=== PATIENT | female | born 1965 | race Caucasian/White ===

== ENCOUNTER → 2023-02-04 12:04 | Outpatient (CLI) | payer BC, OTHER, SELFPAY ==
--- NOTE | 2023-02-04 | DI.RAD.S_ITS ---
P MRI ROCEDURE: XR LUMBAR SPINE 2-3V INDICATIONS: low back pain TECHNIQUE: 3 views of the lumbar spine were acquired. COMPARISON: None. FINDINGS: Bones: 5 [id number] vertebrae are present. Bilateral L5 pars defects. Grade 1 anterolisthesis of L5 on S1 measuring 8 mm. Lower lumbar facet arthropathy. No vertebral body compression fractures. No suspicious bony lesions. Soft tissues: Overlying bowel gas pattern is normal. No suspicious soft tissue calcifications. IMPRESSION: 1. Bilateral L5 pars defects with grade 1 anterolisthesis of L5 on S1. Comment: Lumbar spine MRI be helpful. Dictated by: Yan Lal M.D. on 02/04/2023 at 14:00 Approved by: Yan Lal M.D. on 02/04/2023 at 14:01
== END ==
PROVIDERS: Family Provider Family Medicine; PCP Naturopath; Referring Provider Naturopath; Visit Provider Naturopath
DX: M43.17 Spondylolisthesis, lumbosacral region (principal); M54.50 Low back pain, unspecified
CPT/HCPCS: 72100

== ENCOUNTER → 2023-03-04 17:07 | Outpatient (CLI) | payer BC, OTHER, SELFPAY ==
--- NOTE | 2023-03-04 17:09 | DI.MRI.S_ITS ---
PROCEDURE: MR LUMBAR SPINE WO CON INDICATIONS: Spondylolisthesis, site unspecified TECHNIQUE: Noncontrast sagittal T1 spin echo and T2 fast echo, sagittal STIR, and T2 fast spin echo through the lumbar spine. In cases with scoliosis, additional coronal T2 fast spin echo may be performed. COMPARISON: [facility], CR, XR LUMBAR SPINE 2-3V, 02/04/2023, 12:14. FINDINGS: Image quality: Excellent. Alignment and Curvature: Grade 1 L5-S1 anterolisthesis is seen, with associated pars defects. Bone Marrow: Marrow is of normal overall signal. No acute vertebral body compression fractures. Spinal Cord: Conus medullaris terminates at the L1 level. Visualized cord demonstrates normal signal and size. Paraspinous Soft Tissues: No paravertebral masses. T12-L1: Normal appearance. L1-L2: Normal appearance. L2-L3: No significant abnormality is seen. L3-L4: The disc height and disk signal are relatively well-preserved. Minimal disc bulge is seen. Mild to moderate facet hypertrophy is seen. No significant neural foraminal or central canal narrowing can be seen. L4-L5: The disc height and disk signal are relatively well-preserved. Moderate facet joint hypertrophy is seen. No significant neural foraminal narrowing or central canal narrowing can be seen. L5-S1: Moderate loss of disc height and disc signal can be seen posteriorly. Mild to moderate disc bulge is seen. Mild to moderate facet hypertrophy can be seen. There is moderate to severe bilateral neural foraminal narrowing seen (left worse than right), with an associated a degree of compression seen upon the exiting nerve roots. No significant central canal narrowing is seen. IMPRESSION: Focal L5-S1 degenerative change is seen, with bilateral pars defects and grade 1 L5-S1 anterolisthesis. Moderate to severe bilateral neural foraminal narrowing can be seen, with associated compression upon the exiting bilateral L5 nerve roots. Dictated by: Elliott Boudreaux M.D. on 03/04/2023 at 17:45 Approved by: Elliott Boudreaux M.D. on 03/04/2023 at 17:48
== END ==
PROVIDERS: Family Provider Family Medicine; PCP Naturopath; Referring Provider Orthopaedic Surgery Orthopaedic Surgery of the Spine; Visit Provider Orthopaedic Surgery Orthopaedic Surgery of the Spine
DX: M47.817 Spondylosis without myelopathy or radiculopathy, lumbosacral region; M43.17 Spondylolisthesis, lumbosacral region; M48.07 Spinal stenosis, lumbosacral region
CPT/HCPCS: 72148

== ENCOUNTER → 2023-04-25 10:23 | Outpatient (CLI) | payer BC, OTHER, SELFPAY | PROVIDERS: Family Provider Family Medicine; PCP Naturopath; Referring Provider Orthopaedic Surgery Orthopaedic Surgery of the Spine; Visit Provider Orthopaedic Surgery Orthopaedic Surgery of the Spine | DX: Z01.818 Encounter for other preprocedural examination (principal) | CPT/HCPCS: 93005 ==

== ENCOUNTER 2023-05-01 10:23 | Observation (INO) | payer BC, OTHER, SELFPAY ==
[2023-04-30 07:43] VITALS: BMI 26.3
[2023-05-01] VITALS (16 sets, daily range): BP systolic 110–133; BP diastolic 51–77; PULSE 67–108; RESP 10–18; TEMP 36.1–36.4; O2SAT 97–100; BMI 26.3
--- NOTE | 2023-05-01 | DI.RAD.S_ITS ---
PROCEDURE: XR LUMBAR SPINE 2-3V INDICATIONS: TLIF L5-S1 TECHNIQUE: 3 views of the lumbar spine were acquired. COMPARISON: [facility], CR, XR LUMBAR SPINE 2-3V, 02/04/2023, 12:14. FINDINGS: Fluoroscopic guidance utilized for and L5-S1 posterior and interbody surgical fusion. No hardware complication. IMPRESSION: Fluoroscopic guidance. Dictated by: Tod Shoemaker M.D. on 05/01/2023 at 15:50 Approved by: Tod Shoemaker M.D. on 05/01/2023 at 15:51
[2023-05-01] MEDS: LACTATED RINGERS 1,000 ML 100 ML IV (11:07)
--- NOTE | 2023-05-01 11:45 | PM.PREOP ---
Pre-operative Note COVID-19 Criteria for continued procedure: Expected advancement of disease process, Possibility delay results in more complex future surgery or treatment, Increased loss of function, Continuing or worsening of significant or severe pain, Deterioration of the patient's condition or overall health and Delay expected to result in less-positive ultimate med/surg outcome Interval Note History & Physical reviewed/Exam performed by Physician: Yes Changes to H&P: No
[2023-05-01] MEDS: CEFAZOLIN 2 GM/100 ML PREMIX 100 ML IV ×2 (12:35→20:22)
--- NOTE | 2023-05-01 13:05 | SUR.OPER ---
Prone on spine table, head in foam head support, padded chest and pelvic supports, gel pad at knees, lower legs supported by pillows; nipples, genitalia and toes free of pressure, arms secured on foam padded arm boards at <90 degrees abduction. Tape over blanket at thigh secured to table.
[2023-05-01] MEDS: BUPIVACAINE 0.25% (PF) 60 ML, EPINEPHrine 0.15 MG INJ (13:12)
[2023-05-01] MEDS: BUPIVACAINE LIPOSOME 266 MG/20 ML VIAL INJ (13:12)
--- NOTE | 2023-05-01 14:57 | P.OP_ITS ---
Operative Date/Time/Diagnoses Date of procedure: 05/01/23 Time of procedure: 12:00 Pre-op diagnosis: 1. L5-S1 spondylolisthesis 2. L5-S1 spinal stenosis with radiculopathy Post-op diagnosis: same Procedure & Clinicians Procedure: 1. L5-S1 Postero-lateral and posterior interbody fusion 2. L5-S1 interbody cage placement. 3. L5-S1 decompressive laminectomy with bilateral facetecomies 4. L5-S1 Posterior non-segmental instrumentation 5. [place] of bone marrow from iliac crest 6. Utilization of microsurgical technique and operating microscope Same procedure as scheduled: Yes Indications: Patient has been having chronic back pain and worsening lumbar radiculopathy. Patient failed multiple conservative management with worsening pain weakness and numbness in her lower extremity. Patient has been having difficulty performing activity of daily living. After discussing risks benefits of treatment options, patient elected proceed with surgery. Surgeon: Alexus Borja Liquid Sugar Fortifier: Edilma Case Click Yes if Unassisted: No Anesthesia Type: General Operative Notes Closure Type: primary Specimen(s): none sent Prosthetic devices, grafts, tissues, transplants, or devices: Globus revolve screws, Rise cage Estimated Blood Loss (mL): 100 Blood products transfused: none Procedure in detail: Patient was seen in the preoperative area. Risks and benefits of the surgery was discussed with the patient. Informed consent was obtained from the patient and placed in the chart. Surgical site was marked. Patient was taken to the operative room. General anesthesia was administered. Prophylactic antibiotic was given to the patient less than 30 min before the incision was made. Patient was placed into a prone position on the Kirby table. Patient's back was then prepped and draped in the sterile fashion. Time-out was performed at this time. Using AP and lateral C-arm imaging the interval between L5-S1 was identified and marked on patient's back. A 2 inch incision 2 in from midline was made on the left side first. The fascia was incised in line with skin incision. Globus MARS retractors was placed inside the incision and docked onto the L5 lamina. Using microsurgical technique and operating microscope, a L5 laminectomy and L5-S1 facetectomy was performed using a Kerrison rongeur. The laminectomy and facetectomy was performed in order to decompress patient's cauda equina as well as the nerve roots exiting at the L5-S1 level. Patient was found have severe lateral recess and neural foramen stenosis which was fully decompressed after the laminectomy facetectomy. More than 75% of the facets were removed during the process of decompression rendering L5-S1 level grossly unstable and required a fusion procedure at the same time. The disc space at L5-S1 was identified. And a total diskectomy was performed at L5-S1 level. The endplates were decorticated using a rasp and shaver. The total diskectomy and decortication was performed at L5-S1 level in order to to accomplish a L5-S1 fusion. The local bone from the laminectomy and facetectomy was saved for local bone grafting. After the total diskectomy and decortication was completed, Trifecta bone graft material was combined with local bone that was harvested earlier. At this time, a separate skin is incision was made over the iliac crest. A Jamshidi needle was inserted into the iliac crest through a separate skin incision. 5 cc of bone marrow aspiration was obtained through the separate skin incision using a Jamshidi needle from the iliac crest. The bone marrow aspiration was combined with local bone and the Trifecta bone grafting material. The bone grafting material was placed into the L5-S1 interbody space along with a expandable cage. The cage was expanded to its maximum height using the torque limiting screwdriver. At this time a mirror image incision was made on the right side. The fascia was incised in line with the skin incision. Globus MARS retractor was inserted and docked onto the L5-S1 posterolateral gutter. Using the power drill, posterior- lateral decortication was performed at L5-S1 level until bleeding cortical bone was identified. The remaining bone grafting material was placed into the L5-S1 posterior lateral gutter he order to accomplish posterolateral fusion at the L5- S1 level. Using the double C-arm technique, pedicle screws were placed into the L5-S1 pedicles bilaterally. This was done by placing the Jamshidi needle into the pedicles, then placing the guidewires over the Jamshidi needle, and finally placing the cannulated screws over the guidewires bilaterally. After the pedicle screws were placed, 2 titanium rods was locked into the heads of the pedicle screws using locking caps and torque limiting screwdriver. After all the hardware was placed, and confirmed with AP and lateral C-arm imaging, the wound was then irrigated with sterile normal saline and packed with Ray-Tamara gauze for 3 min to accomplish hemostasis. After the gauze was removed the deep fascia was closed with #1 Vicryl suture. The subcutaneous layer was closed with 2-0 Vicryl. The skin was closed with skin cristy. Patient tolerated the procedure well. There were no complications. The Operation could not have been safely performed without compromising the technical result or length of the procedure, without the assistance of a skilled assistant finance director. The assistant finance director was medically necessary for proper positioning, retraction and manipulation of instruments, proper exposure, surgical preparation, and manipulation of tissue. Complications: none Post-operative Condition: stable Disposition: PACU Plan for aftercare: Admit to inpatient hospital
[2023-05-01] MEDS: OXYCODONE IR 5 MG TABLET PO (15:36)
[2023-05-01] MEDS: ACETAMINOPHEN 325 MG TABLET 650 MG PO (17:14)
[2023-05-01] MEDS: OXYCODONE IR 10 MG TABLET PO ×3 (17:15→21:07)
[2023-05-01] MEDS: hydrOXYzine pamoate 25 MG CAPSULE PO (18:09)
[2023-05-01] MEDS: HYDROMORPHONE 0.5 MG INJ IV ×2 (18:58→21:57)
[2023-05-01] MEDS: SENNOSIDES 8.6 MG TABLET 17.2 MG PO (20:21)
[2023-05-01] MEDS: DOCUSATE 100 MG CAPSULE PO (20:21)
[2023-05-02] VITALS (8 sets, daily range): BP systolic 96–115; BP diastolic 55–75; PULSE 67–86; RESP 10–19; TEMP 36.4–36.8; O2SAT 98–100
[2023-05-02] MEDS: OXYCODONE IR 10 MG TABLET PO ×4 (00:14→12:56)
[2023-05-02] MEDS: CEFAZOLIN 2 GM/100 ML PREMIX 100 ML IV (03:47)
[2023-05-02] MEDS: ONDANSETRON 4 MG/2 ML INJ IV ×2 (04:31→11:17)
[2023-05-02] MEDS: LEVOTHYROXINE 88 MCG 88 EACH PO (06:02)
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
[2023-05-02] MEDS: ACETAMINOPHEN 325 MG TABLET 650 MG PO ×3 (07:36→21:15)
[2023-05-02] MEDS: LIOTHYRONINE 5 MCG TABLET PO (08:10)
[2023-05-02] MEDS: hydrOXYzine pamoate 25 MG CAPSULE PO ×2 (08:10→15:48)
[2023-05-02] MEDS: DOCUSATE 100 MG CAPSULE PO ×2 (08:11→21:16)
--- NOTE | 2023-05-02 10:30 | CM.DANOTE ---
Initial DCP Assessment Note Pt is a 57 yo female, resident of [place], now POD#[address] surgery [address] Borja PCP: Nury Babcock [facility], pt discussed in multidisciplinary rounds this morning. Therapy is pending. Patient has been complaining of poor pain management this morning Met w/patient to introduce role. Patient explains she is indp and works at [employer] and planned to have her help her through the weekend and then her 86 yo mother will be here from [place] to assist. Patient's mom is active and indp and will be able to assist patient throughout her recovery No barriers identified at this time to patient's safe discharge home w/family to assist, awaiting input from therapy eval; close outpatient f/u recommended upon discharge. SEAN Moncada Discharge Planning/Care Management CM Discharge Assessment Start: 05/02/23 10:26 Freq: Status: Active Protocol: Document 05/02/23 10:26 JENNIFER (Rec: 05/02/23 10:27 JENNIFER [id number]) Discharge Planning Assessment Assigned Lawyer SEAN Dorsey DPOA/Assigned Designee Name Audi Ly, spouse Contact Information [phone] Advance Directives? No Advance Directives on File No History Provided By Patient,Medical Record Prior Living Arrangements House Household Members spouse Type of transporation used prior to Drives own vehicle admit Independent with ADL's Yes Is patient alert and oriented? Yes Barriers to Discharge No Comment Anticipate home w/spouse upon discharge Discharge Plan Home Transportation Arrangement Family Referrals Initiated None needed
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
--- NOTE | 2023-05-02 16:07 | PT-IP ANOTE ---
Attempted to see pt at 14:00, pts BP 77/37 sitting in chair and 84/39 fully reclined. Pt queasy and lightheaded. Will hold PT until pt appropriate, RN aware and giving pt more fluids.
[2023-05-02] MEDS: OXYCODONE IR 5 MG TABLET PO ×2 (17:59→21:16)
[2023-05-02] MEDS: LACTATED RINGERS 1,000 ML 100 ML IV (18:45)
[2023-05-02] MEDS: SENNOSIDES 8.6 MG TABLET 17.2 MG PO (21:16)
[2023-05-03 00:33] VITALS: BP 94/51; PULSE 77; RESP 18; TEMP 36.7; O2SAT 96
[2023-05-03] MEDS: OXYCODONE IR 5 MG TABLET PO ×3 (03:56→10:27)
[2023-05-03 04:01] VITALS: BP 103/59; PULSE 74; RESP 18; TEMP 36.3; O2SAT 99
[2023-05-03] MEDS: LACTATED RINGERS 1,000 ML 100 ML IV (04:49)
[2023-05-03] MEDS: LEVOTHYROXINE 88 MCG 88 EACH PO (06:07)
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
[2023-05-03] MEDS: polyethylene glycoL 3350 17 GM POWD.PACK PO (07:43)
[2023-05-03] MEDS: LIOTHYRONINE 5 MCG TABLET PO (07:43)
[2023-05-03] MEDS: DOCUSATE 100 MG CAPSULE PO (07:43)
--- NOTE | 2023-05-03 08:32 | OT.IP.TRT ---
Current Diagnoses Spondylolisthesis, lumbosacral region (05/01/23) Spinal stenosis, lumbosacral region (05/01/23) Arthrodesis status (05/01/23) Surgery Performed Operation Date: 05/01/23 12:15 Actual Procedures p L5-S1 TLIF - Alexus Borja MD Occupational Therapy Treatment Note M2 OT-IP Current Condition Start: 05/02/23 16:23 Freq: Status: Active Protocol: Document 05/02/23 10:28 [facility] (Rec: 05/02/23 16:46 [facility] [id number]) Occupational Therapy Current Condition Current Condition Evaluation Date 05/02/23 Treatment Diagnosis S/P L5-S1 TLIF Diagnosis Onset Date 05/01/23 Post Operative Precautions Lumbar Precautions Log Roll,No Twisting,Limit Bending,Lifting Restriction of 10 lbs,Gait Belt above Incisional Area M3 OT- IP Subjective and Pain Start: 05/02/23 16:23 Freq: Status: Active Protocol: Document 05/03/23 08:32 [facility] (Rec: 05/03/23 09:06 [facility] [id number]) OT- Subjective Occupational Therapy Visit Type Type Treatment Note Visit Start Time 08:32 Visit Stop Time 08:55 Total Visit Minutes 23 Occupational Therapy Visit Comments Patient Comments Pt feeling better and her present for caregiver training. Patient/Caregiver Goals Pt to go home. OT Pain Assessment Pain When Pain Assessed At Rest Pain Present Pain Present Denied Pain M4 OT- IP ADL's Start: 05/02/23 16:23 Freq: Status: Active Protocol: Document 05/03/23 08:32 [facility] (Rec: 05/03/23 09:06 [facility] [id number]) OT EEP-Oiho-Rnvthqr General Evaluation Self-Feeding Ability Independent OT ADL-Grooming Comments OT Grooming Comments Not performed. OT ADL-Oral Care Comments Oral Care Comments Educated best to sip into a cup to best follow her back precautions. OT ADL-Dressing General Eval Lower Body Dressing Ability Standby Assistance Comments OT Dressing Comments Pt able to cross her leg comfortably to be able to zia her LB clothing. OT ADL-Toileting General Evaluation Toileting Ability Standby Assistance Comments OT Toileting Comments Pt able to stand and wipe appropriately and pt CGA assist to stand. M5 OT- IP IADL's Start: 05/02/23 16:23 Freq: Status: Active Protocol: Document 05/02/23 10:28 [facility] (Rec: 05/02/23 16:46 [facility] [id number]) OT-Instrumental Activities of Daily Living Deficits IADL Deficits Identified Deficits Home Safety Awareness Awareness of Need for Assistance at Home Good Awareness Home Safety Comments Pt has a supportive to be able to assist. M6 OT- IP Functional Cognition Start: 05/02/23 16:23 Freq: Status: Active Protocol: Document 05/03/23 08:32 [facility] (Rec: 05/03/23 09:06 [facility] [id number]) Cognitive Factors Limiting Selfcare Function Cognitive Ability Level of Alertness Alert Patient Orientation Name,Place,Situation Attention Span Ability Capable of Focused Attention, Capable of Sustained Attention Ability to Follow Commands Able to Follow One Step Commands Cognitive Comments Cognitive Assessment Comments Intact M7 OT- IP Mobility and Balance Start: 05/02/23 16:23 Freq: Status: Active Protocol: Document 05/03/23 08:32 [facility] (Rec: 05/03/23 09:06 [facility] [id number]) OT-Transfer Assessment Sit to and From Stand Sit to and from Stand Standby Assistance,Minimal Assistance Transfers Transfer Ability Standby Assistance Technique Transfer Destination Bed,Chair,Toilet Transfer Technique Stand Step Pivot Devices Transfer Assistive Devices Gait Belt,Front Wheeled Walker Comments Mobility Comments Pending of height of surface pt at times needing RONNIE to stand . VC to push with her hand on the surface standing up from . Pt's able to show good safety to be able to assist for bed mobility and transfers at this time. BP having no issues today. OT- Balance Assessment Sitting Balance and Reactions Static Sitting Balance Ability Normal Dynamic Sitting Balance Ability Good Standing Balance and Reactions Static Standing Balance Ability Good Dynamic Standing Balance Ability Good M8 OT- IP Objective Assessments Start: 05/02/23 16:23 Freq: Status: Active Protocol: Document 05/02/23 10:28 [facility] (Rec: 05/02/23 16:46 [facility] [id number]) OT-Muscle Tone Assessment Muscle Tone WNL Yes M9 OT- IP Assessment and Plan Start: 05/02/23 16:23 Freq: Status: Active Protocol: Document 05/03/23 08:32 [facility] (Rec: 05/03/23 09:06 [facility] [id number]) OT Summary Assessment and Plan Potential Rehabilitation Potential Good Analytic Complexity at Evaluation Low Summary OT Impairments Pain,Balance,Functional Mobility,Dressing,Toileting, Bathing,Toilet Transfers, Shower Transfers,Activity Tolerance Progress Towards Goals Progressing Toward Goals Assessment Summary Pt doing well today and BP stable. Pt's trained on bed mobility, transfers and how to assist for ADl needs. Pt's able to demonstrate good safety and understanding. Pt to go home today. Goals Self-Feeding Goal Independent Grooming Goal Independent Dressing Goal Independent Toileting Goal Independent Bathing Goal Independent Toilet Transfer Goal Independent Shower Transfer Goal Independent Patient/Caregiver Education Goal Demonstrate Post-Op Precautions Days to Meet Goals 3 Frequency of Treatment Frequency Of Treatment Once a Day Treatment Plan OT Treatment Plan ADL Training,Functional Mobility,Patient/Family Education,Discharge Planning Discharge Recommendations OT Discharge Recommendations Home with Assistance Home Equipment Needs [facility] Transportation Needs at Discharge Private Vehicle
--- NOTE | 2023-05-03 09:05 | PT.IPTN ---
Current Diagnoses Spondylolisthesis, lumbosacral region (05/01/23) Spinal stenosis, lumbosacral region (05/01/23) Arthrodesis status (05/01/23) Surgery Performed Operation Date: 05/01/23 12:15 Actual Procedures p L5-S1 TLIF - Alexus Borja MD Physical Therapy Treatment Note M2 PT-IP Current Condition Start: 05/02/23 13:21 Freq: NEEDED Status: Active Protocol: Document 05/02/23 11:40 AB (Rec: 05/02/23 13:36 AB [id number]) Physical Therapy Current Condition Current Condition Evaluation Date 05/02/23 Treatment Diagnosis s/p L5S1 TLIF; difficulty in walking Onset Date 05/01/23 M3 PT-IP Subjective Start: 05/02/23 13:21 Freq: NEEDED Status: Active Protocol: Document 05/03/23 09:17 TS (Rec: 05/03/23 09:35 TS [id number]) Subjective Physical Therapy Visit Type Type Treatment Note Visit Start Time 09:05 Visit Stop Time 09:18 Total Visit Minutes 13 Notes Spouse present. Number of PROPERTY MANAGEMENT ASSISTANT Visits 1 Physical Therapy Visit Comments Patient Comments Pt found resting in chair, agreealbe to PT. M4 PT-IP Mobility and Gait Start: 05/02/23 13:21 Freq: NEEDED Status: Active Protocol: Document 05/03/23 09:17 TS (Rec: 05/03/23 09:35 TS [id number]) PT-Transfer Assessment Sit to and From Stand Sit to and from Stand Standby Assistance Equipment Transfer Assistive Device Gait Belt,Front Wheeled Walker Orthotic/Prosthetic Devices or Brace: No Comments Mobility Comments Pt performed sit to stand with FWW SBA with BUE support on FWW, provided cues for weight forward. She ambulated SBA with FWW slow step thru gait ~ 30. She performed platform steps with FWW x3, provided cues for step sequencing. Pt was left back in chair ready to d/c home. Gait Assessment Gait Gait Assistance Required: Standby Assistance Distance (Feet) 30 Assistive Devices Assistive Device Gait Belt,Front Wheeled Walker Orthotic/Prosthetic Devices or Brace: No Gait Deviations General Gait Pattern Antalgic,Decreased Stride Length,Decreased Feet Clearance,Step-to Gait Factors Limiting Gait Function Factors Limiting Gait Function Decreased Activity Tolerance, Decreased Strength Comments Gait Comments See mobility comments. Stair Climbing Assessment Evaluation Level of Assist On Stairs Standby Assistance Devices Stair Climbing Assistive Devices Front Wheel Walker Technique/Endurance Stair Climbing Direction Ascend and Descend Stair Climbing Technique Step to Step Number of Steps Climbed 3 Comments Stair Climbing Comments See mobility comments. PT-Balance Assessment Sitting Balance and Reactions Static Sitting Balance Ability Normal Dynamic Sitting Balance Ability Good Standing Balance and Reactions Static Standing Balance Ability Good Dynamic Standing Balance Ability Good Device Used FWW M5 PT-IP Objective Assessments Start: 05/02/23 13:21 Freq: NEEDED Status: Active Protocol: Document 05/02/23 11:40 AB (Rec: 05/02/23 13:36 AB [id number]) Orientation Orientation/Cognition Level of Alertness Alert Orientation Name,Place,Situation Language Function Ability No Deficits Noted Safety Awareness Understands Safety Issues Memory Description No Deficits Noted Gross Range of Motion Lower Extremity ROM Assessment Within Functional Limits Strength Lower Extremity Strength Assessment Left Impaired Hip 3+/5 Knee 4+/5 Coordination Assessment Gross Coordination Gross Coordination WNL Sensation Assessment Sensation Gross Sensation WNL Muscle Tone Muscle Tone WNL Yes M6 PT-IP Treatment Start: 05/02/23 13:21 Freq: NEEDED Status: Active Protocol: Document 05/03/23 09:17 TS (Rec: 05/03/23 09:35 TS [id number]) Physical Therapy Treatment Education Education Provided Precautions,Weight Bearing Status,Safety M7 PT-IP Assessment and Plan Start: 05/02/23 13:21 Freq: NEEDED Status: Active Protocol: Document 05/03/23 09:17 TS (Rec: 05/03/23 09:35 TS [id number]) PT Summary Assessment and Plan Potential Rehabilitation Potential Excellent Summary Impairments Pain,ROM,Strength,Balance, Coordination,Sensation,Tone, Cognition,Bed Mobility, Transfers,Gait,Activity Tolerance Progress Towards Goals Progressing Toward Goals Assessment Summary Pt is progressing well with her mobility. She was SBA for sit to stands and ambulation of 30' in FWW. She performed stairs x3 with FWW CGA, no bucklng or LOB. She demonstrates good safety awareness of her precautions and with mobility. PT is recommending return home with assist from spouse. Goals Bed Mobility Goal Independent Transfer Goal Independent,Front Wheeled Walker Gait Goal Independent,Front Wheel Walker Gait Distance 200 Other Goals up/down 2 platform steps using FWW SBA Days to Meet Goals 5 Frequency of Treatment Frequency Of Treatment Twice a Day Treatment Plan Physical Therapy Treatment Plan Bed Mobility Training,Transfer Training,Gait Training, Therapeutic Exercise,Balance Retraining,Post Op Education, Discharge Planning,Hot or Cold Pack,Neuromuscular Re-ed, Coordination Retraining,Manual Therapy Precautions Lumbar Precautions Log Roll,No Twisting,Limit Bending,Lifting Restriction of 10 lbs,Gait Belt above Incisional Area Recommendations To Nursing Amount of Assist Needed Standby Assistance Discharge Recommendations PT Discharge Recommendations Home with Assistance Transportation Needs at Discharge Private Vehicle
--- NOTE | 2023-05-03 10:54 | PC.NURSE ---
Day shift: Pt left unit at approx 1050. Paperwork signed and all questions answered. Spouse in room also for teachings. Dressing changed per GENO [place]. Pain well controlled per JAN. scripts sent electronic. Pt medicated for back pain just prior to d/c today.
--- NOTE | 2023-05-03 11:09 | CM.DPNOTE ---
DC Note Discharge home w/spouse today, cleared by therapies for this plan No needs identified from this CM team. Patient eager to return home w/spouse and family JW
== END 2023-05-03 10:55 | disposition home or self-care (01) | DRG 455 ==
LOC: OR 10:23 → AC 05-02 11:05
PROVIDERS: Admitting Provider Orthopaedic Surgery Orthopaedic Surgery of the Spine; Family Provider Family Medicine; PCP Naturopath; Referring Provider Orthopaedic Surgery Orthopaedic Surgery of the Spine; Visit Provider Orthopaedic Surgery Orthopaedic Surgery of the Spine
PROC: (CPT 22633; principal; 2023-05-01 12:15)
DX: M43.17 Spondylolisthesis, lumbosacral region (principal); M48.07 Spinal stenosis, lumbosacral region; M54.16 Radiculopathy, lumbar region; R11.2 Nausea with vomiting, unspecified; E06.3 Autoimmune thyroiditis; Z20.822 Contact with and (suspected) exposure to COVID-19
CPT/HCPCS: 22633; 22840; 22853; 63052; 20939; 36415; 72100; 76000; 97162; 97165; 97530; 97535; G0378; C1713; C9290; J0171; J0330; J0690; J1100; J1170; J1885; J2405; J2704; J3010

== ENCOUNTER 2023-05-14 01:07 | Emergency (ER) | payer BC, OTHER, SELFPAY ==
[2023-05-01 16:20] VITALS: BMI 26.3
[2023-05-14 01:10] VITALS: BP 134/63; PULSE 68; RESP 18; TEMP 36.4; O2SAT 98; BMI 26.5
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
[2023-05-14] MEDS: OXYCODONE/APAP 5/325 PREPACK 1 BOTTLE MISC (01:30)
[2023-05-14] MEDS: OXYCODONE/ACETAMINOPHEN 5/325 TABLET 1 TAB PO (01:30)
== END 2023-05-14 01:34 | disposition home or self-care (01) ==
PROVIDERS: Emergency Provider Emergency Medicine; Family Provider Family Medicine; PCP Naturopath
DX: M54.9 Dorsalgia, unspecified (principal); Z76.0 Encounter for issue of repeat prescription
CPT/HCPCS: 99283

== ENCOUNTER → 2024-06-30 13:17 | Outpatient (CLI) | payer BC, OTHER, SELFPAY ==
[2023-05-01 16:20] VITALS: BMI 26.3
--- NOTE | 2024-06-30 | DI.MRI.S_ITS ---
PROCEDURE: MR KNEE LT WO CON INDICATIONS: COMPARTMENT PAIN CATCHING KELLGREN-NIKHIL GRADE2. LEFT KNEE PAIN TECHNIQUE: Noncontrast sagittal PD fast spin echo and T2 fast spin echo with fat saturation, sagittal 3-D FLASH with fat saturation; coronal T1 spin echo and PD fast spin echo with fat saturation, and axial PD fast spin echo with fat saturation through the knee. COMPARISON: [facility] [place], CR, XR KNEE 4+ VIEWS LEFT, 06/23/2024, 10:21. FINDINGS: Image quality: Excellent. Menisci: Subtle signal abnormality involving posterior horn of medial meniscus extending to inferior articulating surface. Cystic structure adjacent to posterior horn of medial meniscus is seen extending to the level of posterior medial meniscal root concerning for parameniscal cyst measures 2.3 x 1.3 x 1.6 cm in size. Moderate grade partial-thickness tear involving posterior medial meniscal root is seen. The lateral meniscus is intact. Cruciate ligaments: The anterior cruciate ligament is thickened with intrasubstance T2 hyperintense signal near its distal insertion. No ACL rupture. The PCL is intact. Medial structures: The medial collateral ligament appears intact. Visualized portions of the pes anserinus tendons appear normal. No abnormal bursal fluid. Lateral structures: The lateral collateral ligament, long and short heads of the biceps femoris tendon appear intact. The popliteus tendon appears normal. Iliotibial band appears normal. Anterior structures: Distal quadriceps tendinosis at its superior patellar insertion is seen. The patellar tendon is intact. There is thickening of the lateral patellofemoral ligament at its patellar insertion.. Patellar alignment is normal. No femoral trochlear dysplasia or ventral trochlear prominence. No edema in the infrapatellar fat pad. Bones and cartilage: Bipartite arm appearance of the patella is noted. No fracture or dislocation. Nonspecific intraosseous cystic changes are noted involving base of tibial spine near ACL insertion. No bone marrow contusions or fractures. Mild tricompartmental osteoarthritis and low-grade chondromalacia is seen more notably in medial femoral tibial compartment. Joint space: There is small knee joint fluid. No Hernandez's cyst. Normal appearing synovial plicae are incidentally noted. IMPRESSION: 1. Suggestion of subtle oblique tear involving posterior horn of medial meniscus extending to inferior articulating surface with associated parameniscal cyst as described above. There is also moderate grade partial-thickness tear involving posterior medial meniscal root. The lateral meniscus is intact. 2. Low-grade partial-thickness tear involving distal ACL near its tibial insertion. No ACL rupture. The PCL is intact. 3. Distal quadriceps tendinosis. Proximal patellar tendinosis. Sprain/low-grade partial-thickness tear involving lateral patellofemoral ligament near its patellar insertion. Bipartite appearance of patella. No significant patellar subluxation. 4. Mild tricompartmental osteoarthritis and low-grade chondromalacia more notably in medial femoral tibial compartment. No fracture or dislocation. No gross loose bodies. Dictated by: Leandro Rogel M.D. on 06/30/2024 at 17:17 Approved by: Leandro Rogel M.D. on 06/30/2024 at 17:34
== END ==
PROVIDERS: Family Provider Family Medicine; PCP Naturopath; Referring Provider Orthopaedic Surgery Foot and Ankle Surgery; Visit Provider Orthopaedic Surgery Foot and Ankle Surgery
DX: M23.022 Cystic meniscus, posterior horn of medial meniscus, left knee (principal); S83.8X2A Sprain of other specified parts of left knee, initial encounter; S83.512A Sprain of anterior cruciate ligament of left knee, initial encounter; S76.112A Strain of left quadriceps muscle, fascia and tendon, initial encounter; M23.92 Unspecified internal derangement of left knee; M17.12 Unilateral primary osteoarthritis, left knee; M94.262 Chondromalacia, left knee
CPT/HCPCS: 73721